=== PATIENT | male | born 1930 | race Caucasian/White ===

== ENCOUNTER 2017-12-04 10:39 | Outpatient (CLI) | payer MEDICARE, OTHER ==
[2017-12-04 13:13] LABS: ALANINE AMINOTRANSFERASE 33 U/L (12-78); ALBUMIN 3.1 G/DL (3.4-5.0); ALBUMIN/GLOBULIN RATIO 0.9 (1.1-1.5); ALKALINE PHOSPHATASE 64 IU/L (46-116); ANION GAP 10 (8-16); ASPARTATE AMINO TRANSFERASE 30 U/L (10-37); BILIRUBIN,DIRECT 0.2 MG/DL (0-0.3); BLOOD UREA NITROGEN 18 MG/DL (7-18); BUN/CREATININE RATIO 12.9 (5.4-32.0); CALCIUM 9.2 MG/DL (8.5-10.1); CHLORIDE 108 MMOL/L (99-107); GLUCOSE 124 MG/DL (70-104); SODIUM 144 MMOL/L (135-145); TOTAL CARBON DIOXIDE 26.3 MMOL/L (24-32); TOTAL PROTEIN 6.6 G/DL (6.4-8.2); eGFR 48 ML/MIN
== END 2017-12-04 23:59 | disposition home or self-care (01) ==
LOC: RT 10:39
PROVIDERS: ATTEND Family Medicine
DX: Z51.81 Encounter for therapeutic drug level monitoring (principal); I10 Essential (primary) hypertension; J44.9 Chronic obstructive pulmonary disease, unspecified; I25.10 Atherosclerotic heart disease of native coronary artery without angina pectoris; E78.5 Hyperlipidemia, unspecified; G45.9 Transient cerebral ischemic attack, unspecified; Z79.01 Long term (current) use of anticoagulants; Z79.899 Other long term (current) drug therapy
CPT/HCPCS: 36415; 80048; 80076; 84443; 94010; 94729

== ENCOUNTER 2019-02-19 10:46 | Inpatient (IN) | payer MEDICARE, OTHER ==
[~2019-02-19] VITALS: Ht 180.3 cm; Wt 123.1 kg
--- NOTE | 2019-02-19 11:08 | NUR ---
PT IS ALERT AND ORIENTED, PT C/O RT ANKLE PAIN, +SWELLING (NORMAL FOR PT), SKIN IS WARM TO TOUCH, +CMST TO RT FOOT
[2019-02-19 11:30] LABS: BASOPHILS % (AUTO) 0.2 % (0-1); EOSINOPHILS % (AUTO) 0 % (0-6); HEMATOCRIT 43.7 % (42.0-52.0); HEMOGLOBIN 14.4 g/dl (14.0-17.9); LYMPHOCYTES # (AUTO) 0.3 X10'3 (1.1-4.8); LYMPHOCYTES % (AUTO) 1.4 % (21-51); MEAN PLATELET VOLUME 8.9 FL (7.4-10.4); MONOCYTES # (AUTO) 0.8 X10'3 (0-0.9); NEUTROPHILS # (AUTO) 19.9 X10'3 (1.8-7.7); NEUTROPHILS % (AUTO) 94.4 % (42-75); PLATELET COUNT 149 X10'3 (140-440); RED BLOOD COUNT 4.65 X10'6 (4.70-6.10); RED CELL DISTRIBUTION WIDTH 14.4 % (11.5-14.5); WHITE BLOOD COUNT 21.1 X10'3 (4.5-11.0)
[2019-02-19 11:45] LABS: PARTIAL THROMBOPLASTIN TIME 51 SECONDS (22-32)
[2019-02-19 11:48] LABS: ALANINE AMINOTRANSFERASE 34 U/L (12-78); ALBUMIN 2.7 G/DL (3.4-5.0); ALBUMIN/GLOBULIN RATIO 0.8 (1.1-1.5); ALKALINE PHOSPHATASE 60 IU/L (46-116); ANION GAP 12 (8-16); ASPARTATE AMINO TRANSFERASE 34 U/L (10-37); BILIRUBIN,TOTAL 1.9 MG/DL (0.1-1.0); BLOOD UREA NITROGEN 21 MG/DL (7-18); BUN/CREATININE RATIO 10.8 (5.4-32.0); CHLORIDE 110 MMOL/L (99-107); CREATININE 1.94 MG/DL (0.60-1.10); GLUCOSE 96 MG/DL (70-104); POTASSIUM 3.5 MMOL/L (3.5-5.1); SODIUM 143 MMOL/L (135-145); TOTAL CARBON DIOXIDE 21.2 MMOL/L (24-32); TOTAL PROTEIN 5.9 G/DL (6.4-8.2); eGFR 33 ML/MIN
[2019-02-19 11:53] LABS: CLARITY,URINE CLEAR (Clear); COLOR,URINE STRAW (Yellow); GLUCOSE, URINE NEGATIVE (Neg); KETONES,URINE NEGATIVE (Neg); LEUKOCYTE ESTERASE ,URINE NEGATIVE (Neg); NITRITES, URINE NEGATIVE (Neg); OCCULT BLOOD,URINE MODERATE (Neg); PROTEIN,URINE NEGATIVE (Neg); UROBILINOGEN,URINE 0.2 E.U/dL (0.2-1.0)
[2019-02-19 11:56] LABS: UA COLLECTION TYPE CLN CATCH MIDSTREAM
[2019-02-19 11:59] LABS: SQUAMOUS EPITHELIAL CELL,UR FEW /LPF (FEW)
[2019-02-19 12:00] LABS: RENAL CELLS, URINE MODERATE /HPF; TRANSITIONAL EPI CELLS,URINE FEW /HPF; WBC,URINE 0-4 /HPF (0-4)
[2019-02-19 12:01] LABS: BACTERIA,URINE NONE SEEN /HPF (Neg); MUCUS STRANDS FEW /LPF (Neg)
[2019-02-19] MEDS ORDERED: levoFLOXACIN-Levaquin 750MG/D5 150 ML IV STA (12:09)
[2019-02-19 12:10] LABS: NUCLEATED RED BLOOD CELLS 1 /100WBC (0-0); TOTAL CELLS COUNTED 100
[2019-02-19] MEDS ORDERED: normal saline 1000ML IV soln IV ONE (12:10)
[2019-02-19 12:12] LABS: PLATELET ESTIMATE NORMAL
--- NOTE | 2019-02-19 12:25 | NUR ---
DR JONES AWARE PT HAS RECEIVED 1LITER OF IVF, GAVE VERBAL ORDER TO GIVE 500ML NS BOLUS NOW, COSTUME SEAMSTRESS AT BEDSIDE, FAMILY AT BEDSIDE
--- NOTE | 2019-02-19 12:30 | NUR ---
DR JONES AT BEDSIDE TO TALK WITH FAMILY, GAVE VERBAL ORDER TO GIVE ADDITIONAL 500ML NS BOLUS FOR A TOTAL OF 1 LITER, EF IS 65% PER TECH
[2019-02-19 12:40] LABS: D-DIMER 3.52 MG/L FEU (0-0.50)
[2019-02-19] MEDS ORDERED: acetaminophen 325mg tablet PO ONE (13:10)
[2019-02-19] MEDS: heparin 25,000 UNIT/250ml bag 250 ML IV SCH ×2 (13:10→18:09)
[2019-02-19] MEDS ORDERED: heparin 10,000 units/1 ML INJ IV ONE (13:10)
[2019-02-19] MEDS ORDERED: normal saline 1000ML IV soln IVB ONE (13:10)
[2019-02-19] MEDS ORDERED: AMIO200T40 PO (13:18)
[2019-02-19] MEDS ORDERED: FLUT1DIS4 INH (13:18)
--- NOTE | 2019-02-19 13:18 | NUR ---
DR JONES AWARE PT HAS RECEIVED 2 LITERS OF NS AND PT C/O RT ANKLE PAIN AND TEMP IS DOWN TO 100.4 (BLADDER), GAVE VERBAL ORDER FOR 1 LITER NS
[2019-02-19] MEDS ORDERED: ATOR20TA66 PO (13:19)
[2019-02-19] MEDS ORDERED: DABI150C PO (13:20)
[2019-02-19] MEDS ORDERED: MULT-32 PO (13:20)
[2019-02-19] MEDS ORDERED: CHOL10002 PO (13:21)
[2019-02-19] MEDS ORDERED: ALBU18HF2 INH (13:22)
--- NOTE | 2019-02-19 13:26 | NUR ---
DR JONES AWARE PT IS ON PRADAXA AND COAG RESULTS, WILL HOLD HEPARIN GTT FOR NOW
--- NOTE | 2019-02-19 13:45 | NUR ---
S/W ABOUT THE PT GETTING HEPARIN, SAID TO GO AHEAD AND HOLD HEPARIN DUE TO PT BEING ON PRADAXA
[2019-02-19 13:57] LABS: BASOPHILS % (AUTO) 0.2 % (0-1); EOSINOPHILS % (AUTO) 0 % (0-6); HEMATOCRIT 40.6 % (42.0-52.0); HEMOGLOBIN 13.3 g/dl (14.0-17.9); LYMPHOCYTES # (AUTO) 0.2 X10'3 (1.1-4.8); MEAN CORPUSCULAR HEMOGLOBIN 31.1 PG (27.0-31.0); MEAN CORPUSCULAR HGB CONC 32.7 g/dL (33.0-36.5); MEAN PLATELET VOLUME 8.8 FL (7.4-10.4); MONOCYTES # (AUTO) 1.3 X10'3 (0-0.9); MONOCYTES % (AUTO) 5.9 % (2-12); NEUTROPHILS # (AUTO) 19.9 X10'3 (1.8-7.7); NEUTROPHILS % (AUTO) 92.9 % (42-75); PLATELET COUNT 119 X10'3 (140-440); RED BLOOD COUNT 4.27 X10'6 (4.70-6.10); RED CELL DISTRIBUTION WIDTH 14.4 % (11.5-14.5); WHITE BLOOD COUNT 21.5 X10'3 (4.5-11.0)
[2019-02-19] MEDS: heparin 10,000 units/1 ML INJ IV PRN ×2 (13:58→18:11)
--- NOTE | 2019-02-19 14:12 | NUR ---
HOSPITALIST AT THE BEDSIDE, AWARE OF BLOOD PRESSURE AND PT HAS RECEIVED 3LITERS OF NS
[2019-02-19] MEDS ORDERED: ondansetron/PF 4mg/2ml inj IV PRN (14:15)
[2019-02-19] MEDS ORDERED: diphenhydrAMINE 25mg capsule PO PRN (14:15)
[2019-02-19] MEDS ORDERED: potassium Cl 20 mEq SR tablet PO PRN ×2 (14:15)
[2019-02-19] MEDS ORDERED: magnesium hydroxide 30ml (MOM) UD suspension PO PRN (14:15)
[2019-02-19] MEDS ORDERED: acetaminophen 650mg rectal suppository RC PRN (14:15)
[2019-02-19] MEDS ORDERED: magnesium 2GM in 50ml NS 50 ML IV PRN (14:15)
[2019-02-19] MEDS ORDERED: potassium CL 10mEq/100ml bag 100 ML IV PRN ×2 (14:15)
[2019-02-19] MEDS ORDERED: magnesium 4gm in 100ml NS 100 ML IV PRN (14:15)
[2019-02-19] MEDS ORDERED: magnesium Cl slow-release 64mg tablet PO PRN (14:15)
[2019-02-19] MEDS ORDERED: morphine 2 MG/ML inj. syringe IV PRN ×2 (14:15)
[2019-02-19] MEDS ORDERED: diphenhydrAMINE 50 mg/ml inj IV PRN (14:15)
[2019-02-19] MEDS ORDERED: ipratropium/albuterol 3ml nebule NEB PRN (14:15)
[2019-02-19] MEDS ORDERED: metoclopramide 5 mg/ml inj IV PRN (14:15)
[2019-02-19] MEDS ORDERED: bisacodyl 10mg suppository rectal RC PRN (14:15)
[2019-02-19] MEDS ORDERED: acetaminophen 325mg tablet PO PRN ×2 (14:15)
[2019-02-19] MEDS ORDERED: mag hydrox/Alum hydrox/simeth 30ml oral suspension PO PRN (14:15)
[2019-02-19] MEDS ORDERED: non-formulary drug (Albuterol Sulfate (Ventolin Hfa) 2 PUFFS) INH PRN (14:15)
[2019-02-19] MEDS ORDERED: albuterol 2.5 MG/3 ML nebule NEB PRN (14:20)
[2019-02-19] MEDS ORDERED: vancomycin/NS 1 GM ADD-VANTAGE 250 ML IV ONE ×2 (14:35→16:30)
[2019-02-19] MEDS: albuterol 2.5 MG/3 ML nebule NEB SCH ×2 (14:57→20:20)
[2019-02-19 15:00] VITALS: BP 98/56
--- NOTE | 2019-02-19 15:10 | NUR ---
called to give report to PCU nurse, they will call me back in 5 minutes
--- NOTE | 2019-02-19 15:30 | NUR ---
Received pt report from ED nurse, awaiting pt's arrival.
--- NOTE | 2019-02-19 15:30 | NUR ---
REPORT CALLED TO REFUGIO HOLLIS
[2019-02-19] MEDS: piperacillin/tazo 3.375gm/50ml 50 ML IV SCH ×2 (15:38→19:26)
[2019-02-19 15:41] LABS: HEMOGLOBIN A1C 5.8 % (4.5-6.2)
[2019-02-19 15:51] LABS: BILIRUBIN,DIRECT 0.4 MG/DL (0-0.3)
[2019-02-19] MEDS: normal saline 1000ml 1,000 ML IV SCH (16:00)
--- NOTE | 2019-02-19 16:00 | NUR ---
Patient in room PCU 3024. Vital signs obtained, tele monitor placed on pt, and call light given to pt. Skin check complete. NS running at 100 mL/hr and IV abx. Pt family at bedside, will continue to monitor.
--- NOTE | 2019-02-19 17:51 | NUR ---
PAGER ID: [phone] MESSAGE: [id number] Nestor Michaud, noticed heparin gtt ordered, but it was never started. Continue with Heparin gtt, please call Neelima #[phone] Addendum: 02/19/19 at 1814 by Neelima Ayala RN Dr. Sifuentes called back. Per Dr. Sifuentes, place pt on a Heparin cardiac gtt and follow protocol.
[2019-02-19 18:00] VITALS: BP 91/45
[2019-02-19] MEDS: K and/or MAG REPLACEMENT MC SCH (19:26)
[2019-02-19] MEDS: azithromycin/NS 500mg/250ml 250 ML IV SCH (19:32)
[2019-02-19] MEDS ORDERED: non-formulary drug (Fluticasone/Salmeterol (Advair 250-50 Diskus) 1 PUFFS) INH SCH (20:00)
[2019-02-19] MEDS: budesonide 0.5mg/2ml UD nebule IH SCH (20:20)
[2019-02-19] MEDS ORDERED: temazepam 15mg capsule PO PRN (21:00)
[2019-02-19] MEDS: atorvastatin 20mg tablet PO SCH (21:05)
[2019-02-19 22:00] VITALS: BP 95/55
[2019-02-20] VITALS (12 sets, daily range): BP systolic 91–114; BP diastolic 45–60
[2019-02-20] MEDS: piperacillin/tazo 3.375gm/50ml 50 ML IV SCH ×2 (00:53→07:34)
[2019-02-20] MEDS: normal saline 1000ml 1,000 ML IV SCH ×2 (00:56→07:20)
[2019-02-20] MEDS ORDERED: normal saline 1000ml 1,000 ML IV ONE (01:00)
[2019-02-20 01:19] LABS: BASOPHILS # (AUTO) 0.3 X10'3 (0-0.2); BASOPHILS % (AUTO) 1.1 % (0-1); EOSINOPHILS % (AUTO) 0 % (0-6); HEMATOCRIT 42.6 % (42.0-52.0); HEMOGLOBIN 13.8 g/dl (14.0-17.9); LYMPHOCYTES # (AUTO) 0.4 X10'3 (1.1-4.8); LYMPHOCYTES % (AUTO) 1.4 % (21-51); MEAN CORPUSCULAR HEMOGLOBIN 30.9 PG (27.0-31.0); MEAN CORPUSCULAR HGB CONC 32.4 g/dL (33.0-36.5); MEAN CORPUSCULAR VOLUME 95.2 FL (78-98); MEAN PLATELET VOLUME 9.4 FL (7.4-10.4); MONOCYTES # (AUTO) 1.4 X10'3 (0-0.9); NEUTROPHILS # (AUTO) 25.6 X10'3 (1.8-7.7); NEUTROPHILS % (AUTO) 92.5 % (42-75); PLATELET COUNT 108 X10'3 (140-440); RED BLOOD COUNT 4.47 X10'6 (4.70-6.10)
[2019-02-20 01:21] LABS: WHITE BLOOD COUNT 27.7 X10'3 (4.5-11.0)
[2019-02-20 02:12] LABS: PLATELET ESTIMATE DECREASED; TOTAL CELLS COUNTED 100
[2019-02-20 03:00] LABS: ALANINE AMINOTRANSFERASE 36 U/L (12-78); ALBUMIN 2.3 G/DL (3.4-5.0); ALBUMIN/GLOBULIN RATIO 0.7 (1.1-1.5); ALKALINE PHOSPHATASE 36 IU/L (46-116); ANION GAP 14 (8-16); ASPARTATE AMINO TRANSFERASE 54 U/L (10-37); BLOOD UREA NITROGEN 28 MG/DL (7-18); CALCIUM 7.4 MG/DL (8.5-10.1); CHLORIDE 110 MMOL/L (99-107); CHOL/HDL RATIO 1.1 (0.00-4.99); CHOLESTEROL 68 MG/DL (0-200); CREATININE 2.33 MG/DL (0.60-1.10); GLUCOSE 68 MG/DL (70-104); HDL CHOLESTEROL 61 MG/DL (35-60); LDL CHOLESTEROL 10 MG/DL (50-100); MAGNESIUM 1.2 MG/DL (1.5-2.4); PHOSPHORUS 3.4 MG/DL (2.3-4.5); POTASSIUM 4.3 MMOL/L (3.5-5.1); SODIUM 143 MMOL/L (135-145); TOTAL CARBON DIOXIDE 19.5 MMOL/L (24-32); TOTAL PROTEIN 5.7 G/DL (6.4-8.2); TRIGLYCERIDES 30 MG/DL (20-135); TROPONIN I 0.39 NG/ML (0.0-0.05); eGFR 27 ML/MIN
[2019-02-20] MEDS: albuterol 2.5 MG/3 ML nebule NEB SCH ×4 (03:04→20:08)
[2019-02-20 04:56] LABS: ABG BASE EXCESS -7.9 mmol/L (-2.0-3.0); ABG HCO3 16.8 mmol/L (22.0-26.0); ABG OXYGEN SATURATION 94.3 % (95-98); ABG PCO2 (T) 36.1 mmHg (35.0-48.0); ABG PH (T) 7.297 (7.350-7.450); ABG PO2 (T) 85.8 mmHg (83-108); ALLEN'S TEST Positive; FCOHb 0.6 % (0.5-1.5); FLOW 2 L/min; FMetHb 0.4 % (0.3-1.12); FO2Hb 93.4 % (94-100); PATIENT TEMPERATURE 39.4; TOTAL HEMOGLOBIN 14.7 G/dl (14.0-18.0)
[2019-02-20] MEDS ORDERED: MESSAGE TO PHARMACY PO ONE (06:00)
[2019-02-20] MEDS ORDERED: insulin Lispro (HumaLOG) vial - multi-dose SQ SCH (06:00)
[2019-02-20] MEDS ORDERED: dextrose 50%-water 50ml dispensing syringe IV PRN ×2 (06:00)
[2019-02-20] MEDS ORDERED: glucagon, human recombinant 1mg kit SUBCUT PRN (06:00)
[2019-02-20] MEDS ORDERED: dextrose ORAL solution 15 GM/59 ML bottle PO PRN ×2 (06:00)
[2019-02-20] MEDS ORDERED: sodium phosphate inj. 30 MMOL in dextrose 5%-water 250 ML IV PRN (06:05)
[2019-02-20] MEDS ORDERED: magnesium 2GM in 50ml NS 50 ML IV PRN (06:05)
[2019-02-20] MEDS ORDERED: Neutra Phos packet PO PRN (06:05)
[2019-02-20] MEDS ORDERED: potassium CL 10mEq/100ml bag 100 ML IV PRN ×2 (06:05)
[2019-02-20] MEDS ORDERED: magnesium 4gm in 100ml NS 100 ML IV PRN (06:05)
[2019-02-20] MEDS ORDERED: potassium Cl 20 mEq SR tablet PO PRN ×2 (06:05)
[2019-02-20] MEDS ORDERED: magnesium Cl slow-release 64mg tablet PO PRN (06:05)
[2019-02-20] MEDS ORDERED: sodium phosphate inj. 15 MMOL in dextrose 5%-water 150 ML IV PRN (06:05)
--- NOTE | 2019-02-20 06:51 | NUR ---
Pt had a very eventful night in PCU. Lactate kept increasing overnight from 4.4 to 5.6 to 6.1 where it has remained since approximately 430am. Redraw is timed for 830am. Pt rec'd 3L IVF in ED, and received an additional 1L bolus after the 5.6 lactate. No additional boluses ordered thereafter due to concern for fluid overload r/t cardiac history. Initial PTT results at midnight for the heparin gtt where too high to register. A STAT redraw was done and confirmed supracoagulability. Heparin gtt was turned off at the time of the confirmed result, around 2am per Dr. Aguilar who ordered a 2hr re-draw. That result was 145, heparin gtt remains off at this time and a 4hr PTT redraw was ordered, for 830am. Pt is also anticoagulated from his home med, Pradaxa. Troponins were elevated in ED and protocol was continued here until they peaked at 0.43, then dropped off to 0.39. Blood Cx came back positive overnight: gram positive cocci in chains from the aerobic bottle at 12.1 hrs growth from the right arm. Pt is on broad spectrum abx, receiving Levaquin in ED, 2 doses of Vanc on the PCU as well as Zosyn coverage. Even so, WBC foster from 21.5 yesterday to 27.7 overnight. Pts RLE is painful, red, warm and edematous. He rec'd Morphine x2 overnight for pain control. No vascular study has been completed on it at this time. Pt began the evening on 2L NC, but has required more oxygen as night progressed. He was up to 4L NC w/sats at 93 around 4am. However his WOB seemed to increase and his resp. rate got up to 26-28. Around this time, pt also seemed to be harder to arouse, much more somulent, had difficulty following directions and was not able to take sips of water to swallow PO Tylenol. Pt was agreeable to trying a better mask to help his breathing, so Dr. Aguilar ordered an ABG, and Bipap placement (with a follow up ABG) at this time. Current settings are 15/5 @50% O2. Pt is febrile, temperature rising overnight, finally to 101.5 just before 4am. Attempted to give PO Tylenol but pt was too somulent to swallow safely. Will keep pt NPO at this time until more alert due to aspiration risk. Ordered Q6 blood glucose checks to monitor for hypoglycemia since poor/no oral intake. UOP was minimal overnight despite IVF bolus. 350cc dark miki/sediment UOP measured from [place] for the shift. Electrolyte replacement protocol entered this morning, Mg on AM labs was 1.2, will be replaced this morning. All critical labs/changes in pt condition were reported to the on-call physician overnight. Full report given to day shift RN, all questions answered.
[2019-02-20] MEDS: amiodarone 200mg tablet PO SCH (07:19)
[2019-02-20] MEDS: K and/or MAG REPLACEMENT MC SCH (07:19)
[2019-02-20] MEDS: multivitamins, therapeutics tablet PO SCH (07:19)
[2019-02-20] MEDS: vitamin D (cholecalciferol) 1,000 unit tablet PO SCH (07:19)
[2019-02-20 07:21] LABS: ABG BASE EXCESS -7.4 mmol/L (-2.0-3.0); ABG HCO3 16.2 mmol/L (22.0-26.0); ABG PCO2 (T) 30.6 mmHg (35.0-48.0); ABG PH (T) 7.349 (7.350-7.450); ABG PO2 (T) 121.4 mmHg (83-108); ALLEN'S TEST Positive; FCOHb 0.4 % (0.5-1.5); FMetHb 0.3 % (0.3-1.12); FO2Hb 97.3 % (94-100); MINUTE VOLUME 27 L/min; PATIENT TEMPERATURE 38.8; RESPIRATORY RATE 16 b/min; RESPIRATORY RATE (OBSERVED) 28 b/min; TOTAL HEMOGLOBIN 14.5 G/dl (14.0-18.0)
[2019-02-20] MEDS: azithromycin/NS 500mg/250ml 250 ML IV SCH (07:34)
[2019-02-20] MEDS ORDERED: non-formulary drug (Cholecalciferol (Vitamin D3) (Vitamin D3) 1 TAB) PO SCH (08:00)
[2019-02-20] MEDS ORDERED: LUT PO SCH (08:00)
[2019-02-20] MEDS ORDERED: K and/or MAG REPLACEMENT MC SCH (08:00)
[2019-02-20] MEDS ORDERED: MULTIVITAMINS W MINERALS PO SCH (08:00)
[2019-02-20] MEDS: budesonide 0.5mg/2ml UD nebule IH SCH ×2 (08:39→20:08)
[2019-02-20] MEDS ORDERED: DOPamine 400mg/D5W 250ml 250 ML IV SCH (12:10)
[2019-02-20] MEDS ORDERED: CLINDAMYCIN/D5W 900mg/50ml 50 ML IV SCH (12:45)
[2019-02-20] MEDS ORDERED: CefTRIAXone 2gm/D5W 50ml 50 ML IV SCH (12:45)
--- NOTE | 2019-02-20 13:02 | NUR ---
PAGER ID: [phone] MESSAGE: patient in [id number] needs a central line for dopamine infusion, not available today unless he goes to the ICU
--- NOTE | 2019-02-20 13:47 | NUR ---
PAGER ID: [phone] MESSAGE: patients family would like him to go to ICU, they claim he was never opposed to it, but he was told he couldn't without intubation, please give me a call
--- NOTE | 2019-02-20 15:06 | NUR ---
patient transferred to cicu rom 2007, report given to bry HOLLIS
--- NOTE | 2019-02-20 15:30 | NUR ---
Pt arrived to floor from PCU with BiPap; patient placed on bedside monitor with stable vital signs and MAP >60. Dr. Ledesma at bedside to place central line. 2 RN skin check performed with Tosha RN with no significant findings other than reddened cellulitis to right lower extremity; pt pending a vascular scan to r/o DVT.
[2019-02-20] MEDS: penicillin G potassium inj 2,000,000 UNIT in normal saline 100ml IV soln 100 ML IV SCH ×3 (16:00→20:38)
[2019-02-20] MEDS ORDERED: clindamycin-Cleocin 900mg/D5W 50 ML IV SCH (16:00)
--- NOTE | 2019-02-20 17:30 | NUR ---
Critical ptt >153; Heparin stopped per protocol. MD notified with orders to D/C the Heparin gtt.
[2019-02-20] MEDS ORDERED: NORepinephrine 8mg/ 250ml NS 250 ML IV SCH (18:10)
--- NOTE | 2019-02-20 18:30 | NUR ---
Patient in room CICU 2008. I have received report from Marco Antonio HOLLIS and had the opportunity to ask questions and assume patient care.
--- NOTE | 2019-02-20 18:50 | NUR ---
Problems reprioritized. Patient report given, questions answered & plan of care reviewed with Kartik HOLLIS.
[2019-02-20] MEDS: lactobacillus rhamnosus 10,000 MMU CELLS/CAPSULE PO SCH (20:38)
[2019-02-20] MEDS: atorvastatin 20mg tablet PO SCH (20:38)
[2019-02-20] MEDS: insulin glargine (Lantus) pen - multi-dose SQ SCH (21:00)
[2019-02-21] VITALS (21 sets, daily range): BP systolic 92–118; BP diastolic 40–67
[2019-02-21] MEDS: normal saline 1000ml 1,000 ML IV SCH ×3 (00:01→13:49)
[2019-02-21] MEDS: penicillin G potassium inj 2,000,000 UNIT in normal saline 100ml IV soln 100 ML IV SCH ×3 (00:02→08:47)
[2019-02-21] MEDS: albuterol 2.5 MG/3 ML nebule NEB SCH ×4 (02:28→20:19)
[2019-02-21 03:14] LABS: BASOPHILS # (AUTO) 0.1 X10'3 (0-0.2); BASOPHILS % (AUTO) 0.3 % (0-1); EOSINOPHILS % (AUTO) 0 % (0-6); HEMATOCRIT 41.2 % (42.0-52.0); HEMOGLOBIN 13.1 g/dl (14.0-17.9); LYMPHOCYTES # (AUTO) 0.8 X10'3 (1.1-4.8); LYMPHOCYTES % (AUTO) 2.7 % (21-51); MEAN CORPUSCULAR HEMOGLOBIN 30.3 PG (27.0-31.0); MEAN CORPUSCULAR HGB CONC 31.8 g/dL (33.0-36.5); MEAN CORPUSCULAR VOLUME 95.4 FL (78-98); MEAN PLATELET VOLUME 8.9 FL (7.4-10.4); MONOCYTES # (AUTO) 1.9 X10'3 (0-0.9); MONOCYTES % (AUTO) 6.3 % (2-12); NEUTROPHILS # (AUTO) 27.9 X10'3 (1.8-7.7); NEUTROPHILS % (AUTO) 90.7 % (42-75); PLATELET COUNT 102 X10'3 (140-440); RED BLOOD COUNT 4.32 X10'6 (4.70-6.10); RED CELL DISTRIBUTION WIDTH 15.3 % (11.5-14.5)
[2019-02-21 03:22] LABS: ALANINE AMINOTRANSFERASE 56 U/L (12-78); ALBUMIN/GLOBULIN RATIO 0.6 (1.1-1.5); ALKALINE PHOSPHATASE 44 IU/L (46-116); ANION GAP 8 (8-16); ASPARTATE AMINO TRANSFERASE 176 U/L (10-37); BILIRUBIN,TOTAL 0.9 MG/DL (0.1-1.0); BLOOD UREA NITROGEN 40 MG/DL (7-18); BUN/CREATININE RATIO 21.3 (5.4-32.0); CALCIUM 7.6 MG/DL (8.5-10.1); CHLORIDE 111 MMOL/L (99-107); CREATININE 1.88 MG/DL (0.60-1.10); GLUCOSE 92 MG/DL (70-104); PHOSPHORUS 3.6 MG/DL (2.3-4.5); POTASSIUM 4.2 MMOL/L (3.5-5.1); SODIUM 142 MMOL/L (135-145); TOTAL CARBON DIOXIDE 22.6 MMOL/L (24-32); TOTAL PROTEIN 5.5 G/DL (6.4-8.2); eGFR 34 ML/MIN
[2019-02-21 03:25] LABS: WHITE BLOOD COUNT 30.7 X10'3 (4.5-11.0)
--- NOTE | 2019-02-21 06:20 | NUR ---
Patient in room CICU 2007. I have received report from Kartik HOLLIS and had the opportunity to ask questions and assume patient care.
[2019-02-21] MEDS: budesonide 0.5mg/2ml UD nebule IH SCH ×2 (07:35→20:19)
[2019-02-21] MEDS: K and/or MAG REPLACEMENT MC SCH (08:00)
[2019-02-21 08:37] LABS: TOTAL CELLS COUNTED 100
[2019-02-21 08:38] LABS: ANISOCYTOSIS 1+; PLATELET ESTIMATE DECREASED
[2019-02-21] MEDS: lactobacillus rhamnosus 10,000 MMU CELLS/CAPSULE PO SCH ×2 (08:57→20:30)
[2019-02-21] MEDS: vitamin D (cholecalciferol) 1,000 unit tablet PO SCH (08:57)
[2019-02-21] MEDS: amiodarone 200mg tablet PO SCH (08:57)
[2019-02-21] MEDS: multivitamins, therapeutics tablet PO SCH (08:57)
[2019-02-21] MEDS ORDERED: clindamycin-Cleocin 900mg/D5W 50 ML IV SCH (09:10)
[2019-02-21] MEDS: HYDROcodone/acetaminophen 5mg/325mg tablet PO PRN (09:15)
[2019-02-21] MEDS: clindamycin-Cleocin 900mg/D5W 50 ML IV SCH ×2 (10:39→16:06)
[2019-02-21] MEDS: CefTRIAXone 2gm/D5W 50ml 50 ML IV SCH (10:43)
--- NOTE | 2019-02-21 18:25 | NUR ---
Problems reprioritized. Patient report given, questions answered & plan of care reviewed with Kartik HOLLIS.
[2019-02-21] MEDS: insulin glargine (Lantus) pen - multi-dose SQ SCH (20:27)
[2019-02-21] MEDS: atorvastatin 20mg tablet PO SCH (20:30)
[2019-02-22] VITALS (20 sets, daily range): BP systolic 93–129; BP diastolic 48–75
[2019-02-22] MEDS: normal saline 1000ml 1,000 ML IV SCH (00:21)
[2019-02-22] MEDS: clindamycin-Cleocin 900mg/D5W 50 ML IV SCH ×3 (00:21→17:43)
[2019-02-22 02:42] LABS: BASOPHILS # (AUTO) 0.1 X10'3 (0-0.2); BASOPHILS % (AUTO) 0.2 % (0-1); EOSINOPHILS % (AUTO) 0 % (0-6); HEMATOCRIT 39.4 % (42.0-52.0); HEMOGLOBIN 12.9 g/dl (14.0-17.9); LYMPHOCYTES # (AUTO) 0.7 X10'3 (1.1-4.8); LYMPHOCYTES % (AUTO) 2.4 % (21-51); MEAN CORPUSCULAR HEMOGLOBIN 30.9 PG (27.0-31.0); MEAN CORPUSCULAR HGB CONC 32.9 g/dL (33.0-36.5); MEAN CORPUSCULAR VOLUME 93.8 FL (78-98); MEAN PLATELET VOLUME 9.1 FL (7.4-10.4); MONOCYTES # (AUTO) 1.5 X10'3 (0-0.9); MONOCYTES % (AUTO) 5.5 % (2-12); NEUTROPHILS # (AUTO) 25.6 X10'3 (1.8-7.7); NEUTROPHILS % (AUTO) 91.9 % (42-75); PLATELET COUNT 101 X10'3 (140-440); RED CELL DISTRIBUTION WIDTH 15.1 % (11.5-14.5)
[2019-02-22 02:49] LABS: ALANINE AMINOTRANSFERASE 57 U/L (12-78); ALBUMIN 1.9 G/DL (3.4-5.0); ALBUMIN/GLOBULIN RATIO 0.5 (1.1-1.5); ALKALINE PHOSPHATASE 61 IU/L (46-116); ANION GAP 7 (8-16); ASPARTATE AMINO TRANSFERASE 117 U/L (10-37); BILIRUBIN,TOTAL 0.8 MG/DL (0.1-1.0); BLOOD UREA NITROGEN 41 MG/DL (7-18); BUN/CREATININE RATIO 30.8 (5.4-32.0); CALCIUM 7.8 MG/DL (8.5-10.1); CHLORIDE 110 MMOL/L (99-107); CREATININE 1.33 MG/DL (0.60-1.10); GLUCOSE 103 MG/DL (70-104); MAGNESIUM 2.1 MG/DL (1.5-2.4); PHOSPHORUS 2.2 MG/DL (2.3-4.5); SODIUM 141 MMOL/L (135-145); TOTAL CARBON DIOXIDE 24.3 MMOL/L (24-32); TOTAL PROTEIN 5.7 G/DL (6.4-8.2); eGFR 51 ML/MIN
[2019-02-22 02:59] LABS: WHITE BLOOD COUNT 27.8 X10'3 (4.5-11.0)
[2019-02-22] MEDS: albuterol 2.5 MG/3 ML nebule NEB SCH ×4 (03:20→21:11)
--- NOTE | 2019-02-22 06:30 | NUR ---
Problems reprioritized. Patient report given, questions answered & plan of care reviewed with Kristi HOLLIS.
[2019-02-22 07:48] LABS: ANISOCYTOSIS 1+; BURR CELLS 1+; PLATELET ESTIMATE DECREASED; TOTAL CELLS COUNTED 100; TOXIC GRANULATION 1+
[2019-02-22] MEDS: K and/or MAG REPLACEMENT MC SCH (08:00)
[2019-02-22] MEDS: multivitamins, therapeutics tablet PO SCH (08:27)
[2019-02-22] MEDS: vitamin D (cholecalciferol) 1,000 unit tablet PO SCH (08:27)
[2019-02-22] MEDS: lactobacillus rhamnosus 10,000 MMU CELLS/CAPSULE PO SCH ×2 (08:27→21:02)
[2019-02-22] MEDS: amiodarone 200mg tablet PO SCH (08:28)
[2019-02-22] MEDS: budesonide 0.5mg/2ml UD nebule IH SCH ×2 (09:14→21:11)
[2019-02-22] MEDS: CefTRIAXone 2gm/D5W 50ml 50 ML IV SCH (10:32)
[2019-02-22] MEDS ORDERED: furosemide 40mg/4ml inj IV ONE (12:10)
--- NOTE | 2019-02-22 18:30 | NUR ---
Patient in room CICU 2008. I have received report from Kristi HOLLIS and had the opportunity to ask questions and assume patient care.
[2019-02-22] MEDS: insulin glargine (Lantus) pen - multi-dose SQ SCH (21:00)
[2019-02-22] MEDS: atorvastatin 20mg tablet PO SCH (21:02)
[2019-02-22] MEDS: furosemide 40mg/4ml inj IV SCH (21:02)
[2019-02-23] VITALS (19 sets, daily range): BP systolic 91–116; BP diastolic 44–58
[2019-02-23] MEDS: clindamycin-Cleocin 900mg/D5W 50 ML IV SCH ×3 (00:44→16:33)
[2019-02-23] MEDS: HYDROcodone/acetaminophen 10/325mg tab PO PRN (00:45)
[2019-02-23] MEDS: albuterol 2.5 MG/3 ML nebule NEB SCH ×4 (03:12→20:57)
[2019-02-23 03:57] LABS: BASOPHILS % (AUTO) 0.2 % (0-1); EOSINOPHILS % (AUTO) 0.1 % (0-6); HEMATOCRIT 40.6 % (42.0-52.0); HEMOGLOBIN 13.2 g/dl (14.0-17.9); LYMPHOCYTES # (AUTO) 0.9 X10'3 (1.1-4.8); LYMPHOCYTES % (AUTO) 4.7 % (21-51); MEAN CORPUSCULAR HEMOGLOBIN 30.8 PG (27.0-31.0); MEAN CORPUSCULAR HGB CONC 32.6 g/dL (33.0-36.5); MEAN CORPUSCULAR VOLUME 94.5 FL (78-98); MEAN PLATELET VOLUME 9.3 FL (7.4-10.4); MONOCYTES % (AUTO) 10.9 % (2-12); NEUTROPHILS # (AUTO) 15.7 X10'3 (1.8-7.7); NEUTROPHILS % (AUTO) 84.1 % (42-75); PLATELET COUNT 100 X10'3 (140-440); RED BLOOD COUNT 4.29 X10'6 (4.70-6.10); RED CELL DISTRIBUTION WIDTH 14.8 % (11.5-14.5); WHITE BLOOD COUNT 18.7 X10'3 (4.5-11.0)
[2019-02-23 03:58] LABS: ALANINE AMINOTRANSFERASE 63 U/L (12-78); ALBUMIN 1.7 G/DL (3.4-5.0); ALBUMIN/GLOBULIN RATIO 0.5 (1.1-1.5); ALKALINE PHOSPHATASE 95 IU/L (46-116); ANION GAP 5 (8-16); ASPARTATE AMINO TRANSFERASE 93 U/L (10-37); BILIRUBIN,TOTAL 0.7 MG/DL (0.1-1.0); BLOOD UREA NITROGEN 36 MG/DL (7-18); BUN/CREATININE RATIO 28.3 (5.4-32.0); CALCIUM 8.3 MG/DL (8.5-10.1); CHLORIDE 108 MMOL/L (99-107); CREATININE 1.27 MG/DL (0.60-1.10); GLUCOSE 96 MG/DL (70-104); MAGNESIUM 1.9 MG/DL (1.5-2.4); PHOSPHORUS 2.9 MG/DL (2.3-4.5); POTASSIUM 3.5 MMOL/L (3.5-5.1); SODIUM 141 MMOL/L (135-145); TOTAL CARBON DIOXIDE 28.3 MMOL/L (24-32); TOTAL PROTEIN 5.3 G/DL (6.4-8.2); eGFR 53 ML/MIN
[2019-02-23] MEDS: furosemide 40mg/4ml inj IV SCH ×2 (07:53→20:37)
[2019-02-23] MEDS: K and/or MAG REPLACEMENT MC SCH (08:00)
[2019-02-23] MEDS: methylnaltrexone br 12mg/0.6ml inj***SubQ only SQ SCH (08:24)
[2019-02-23] MEDS: multivitamins, therapeutics tablet PO SCH (08:24)
[2019-02-23] MEDS: vitamin D (cholecalciferol) 1,000 unit tablet PO SCH (08:24)
[2019-02-23] MEDS: amiodarone 200mg tablet PO SCH (08:24)
[2019-02-23] MEDS: lactobacillus rhamnosus 10,000 MMU CELLS/CAPSULE PO SCH ×2 (08:24→20:36)
[2019-02-23] MEDS: CefTRIAXone 2gm/D5W 50ml 50 ML IV SCH (08:24)
[2019-02-23] MEDS: budesonide 0.5mg/2ml UD nebule IH SCH ×2 (09:24→20:57)
[2019-02-23] MEDS ORDERED: VANCOMYCIN LEVEL IV ONE (15:30)
--- NOTE | 2019-02-23 17:28 | NUR ---
[facility]. Transferred to bed using slide board. Vital signs obtained. Call light provided. Dtr. at bedside. VSS. RLE noted to be red with weeping blisters. Elevated on pillow with dri krystyna underneath.
--- NOTE | 2019-02-23 17:38 | NUR ---
Patient transferred to Telemetry floor bed 3024t, with belongings. Daughter at bedside, has his glasses with her. Report given to BUNNY Barnett.
[2019-02-23] MEDS: atorvastatin 20mg tablet PO SCH (20:36)
[2019-02-23] MEDS: insulin glargine (Lantus) pen - multi-dose SQ SCH (21:00)
[2019-02-24] MEDS: clindamycin-Cleocin 900mg/D5W 50 ML IV SCH ×3 (00:46→16:37)
[2019-02-24] MEDS: albuterol 2.5 MG/3 ML nebule NEB SCH ×4 (02:31→21:00)
[2019-02-24 03:00] VITALS: BP 115/50
[2019-02-24 05:14] LABS: BASOPHILS % (AUTO) 0.2 % (0-1); EOSINOPHILS # (AUTO) 0.1 X10'3 (0-0.9); EOSINOPHILS % (AUTO) 0.6 % (0-6); HEMATOCRIT 39.9 % (42.0-52.0); HEMOGLOBIN 13.4 g/dl (14.0-17.9); LYMPHOCYTES # (AUTO) 0.8 X10'3 (1.1-4.8); LYMPHOCYTES % (AUTO) 5.6 % (21-51); MEAN CORPUSCULAR HEMOGLOBIN 31.2 PG (27.0-31.0); MEAN CORPUSCULAR HGB CONC 33.7 g/dL (33.0-36.5); MEAN CORPUSCULAR VOLUME 92.5 FL (78-98); MEAN PLATELET VOLUME 8.8 FL (7.4-10.4); MONOCYTES # (AUTO) 2.2 X10'3 (0-0.9); MONOCYTES % (AUTO) 15.7 % (2-12); NEUTROPHILS # (AUTO) 11.2 X10'3 (1.8-7.7); NEUTROPHILS % (AUTO) 77.9 % (42-75); PLATELET COUNT 112 X10'3 (140-440); RED BLOOD COUNT 4.31 X10'6 (4.70-6.10); RED CELL DISTRIBUTION WIDTH 14.5 % (11.5-14.5); WHITE BLOOD COUNT 14.3 X10'3 (4.5-11.0)
[2019-02-24 05:50] LABS: ALANINE AMINOTRANSFERASE 77 U/L (12-78); ALBUMIN 1.7 G/DL (3.4-5.0); ALBUMIN/GLOBULIN RATIO 0.4 (1.1-1.5); ALKALINE PHOSPHATASE 140 IU/L (46-116); ANION GAP 8 (8-16); ASPARTATE AMINO TRANSFERASE 93 U/L (10-37); BILIRUBIN,TOTAL 0.9 MG/DL (0.1-1.0); BLOOD UREA NITROGEN 35 MG/DL (7-18); BUN/CREATININE RATIO 29.2 (5.4-32.0); CALCIUM 8.5 MG/DL (8.5-10.1); CHLORIDE 106 MMOL/L (99-107); GLUCOSE 94 MG/DL (70-104); MAGNESIUM 1.9 MG/DL (1.5-2.4); PHOSPHORUS 3.5 MG/DL (2.3-4.5); POTASSIUM 3.4 MMOL/L (3.5-5.1); SODIUM 142 MMOL/L (135-145); TOTAL CARBON DIOXIDE 27.9 MMOL/L (24-32); TOTAL PROTEIN 5.6 G/DL (6.4-8.2); eGFR 57 ML/MIN
[2019-02-24 06:00] VITALS: BP 112/53
--- NOTE | 2019-02-24 06:30 | NUR ---
Patient in room PCU 3028. I have received report from BUNNY Crisostomo and had the opportunity to ask questions and assume patient care. Pt is sleeping. Will continue to monitor.
[2019-02-24 06:33] LABS: LARGE PLATELETS FEW; PLATELET ESTIMATE DECREASED; TOTAL CELLS COUNTED 100
[2019-02-24] MEDS: budesonide 0.5mg/2ml UD nebule IH SCH ×2 (08:02→21:00)
[2019-02-24] MEDS: furosemide 40mg/4ml inj IV SCH ×2 (09:09→19:29)
[2019-02-24] MEDS: CefTRIAXone 2gm/D5W 50ml 50 ML IV SCH (09:09)
[2019-02-24] MEDS: amiodarone 200mg tablet PO SCH (09:09)
[2019-02-24] MEDS: lactobacillus rhamnosus 10,000 MMU CELLS/CAPSULE PO SCH ×2 (09:09→19:30)
[2019-02-24] MEDS: multivitamins, therapeutics tablet PO SCH (09:09)
[2019-02-24] MEDS: vitamin D (cholecalciferol) 1,000 unit tablet PO SCH (09:10)
[2019-02-24 11:00] VITALS: BP 123/64
[2019-02-24] MEDS ORDERED: potassium CL 10mEq/100ml bag 100 ML IV PRN (11:30)
[2019-02-24] MEDS ORDERED: potassium Cl 20 mEq SR tablet PO PRN (11:30)
[2019-02-24] MEDS: potassium Cl 20 mEq SR tablet PO PRN ×3 (12:03→22:22)
[2019-02-24] MEDS: K and/or MAG REPLACEMENT MC SCH (12:04)
--- NOTE | 2019-02-24 13:18 | NUR ---
Initial: Pt admit w/ severe sepsis and lactic acidosis improving per MD note. DX PNA and strep sepsis likely r/t RLE cellulitis per MD note. Pt/family seen by RD written/verbal high protein ed w/ RD contact information provided. Pt reports decent appetite but daughter reports low appetite recently and some trouble swallowing but r/t amount of mucous from DX and no mechanical swallowing issues. Pt agrees to gravy w/ meats, cottage cheese w/ fruit at dinners, and chocolate ensure pudding w/ lunches; dietary notified. PO 25% avg meals this admit LBM 02/20 pt reports no feelings of constipation. 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 Will continue to monitor. Rec: 1. continue heart healthy diet 2. chocolate ensure pudding w/ lunches 3. honor pt food preferences; see above 4. wt per rx Addendum: 02/24/19 at [address] Amended: Links added.
[2019-02-24 16:00] VITALS: BP 136/69
--- NOTE | 2019-02-24 16:37 | NUR ---
Pt had FC taken out 02/23/19. He is currently retaining 471mL of urine. Per Dr Huerta, straight cath to relieve pt now; if it keeps happening after 3 times, replace FC.
--- NOTE | 2019-02-24 18:27 | NUR ---
Patient in room PCU 3028. I have received report from BUNNY Long and had the opportunity to ask questions and assume patient care.
--- NOTE | 2019-02-24 18:50 | NUR ---
Problems reprioritized. Patient report given, questions answered & plan of care reviewed with BUNNY Bullock.
--- NOTE | 2019-02-24 19:00 | NUR ---
Spoke with Dr. Jeffers via telephone he advised to order Fuentes protocol for this patient. Will order Fuentes protocol per MD order/ Dr. Jeffers also advised so order a wound care consult to assess the patients skin on his right lower extremity.
[2019-02-24] MEDS: atorvastatin 20mg tablet PO SCH (19:51)
[2019-02-24] MEDS: dabigatran 150mg capsule PO SCH (21:35)
[2019-02-24 23:00] VITALS: BP 113/56
[2019-02-25] VITALS (8 sets, daily range): BP systolic 107–144; BP diastolic 44–64
[2019-02-25] MEDS: clindamycin-Cleocin 900mg/D5W 50 ML IV SCH ×4 (00:44→23:21)
--- NOTE | 2019-02-25 01:00 | NUR ---
Patient woke up confused and was not sure where he was. He believed that there was broken glass all over the floor. He wa confused for about 30 min while speaking with him. Will continue to monitor this patient.
[2019-02-25] MEDS: albuterol 2.5 MG/3 ML nebule NEB SCH ×4 (02:40→20:21)
--- NOTE | 2019-02-25 06:12 | NUR ---
Problems reprioritized. Patient report given, questions answered & plan of care reviewed with BUNNY Long.
--- NOTE | 2019-02-25 06:40 | NUR ---
Patient in room PCU 3028. I have received report from BUNNY Bullock and had the opportunity to ask questions and assume patient care. Pt is awake, and confused. Bed alarm is on. Will continue to monitor.
[2019-02-25] MEDS: K and/or MAG REPLACEMENT MC SCH (08:00)
[2019-02-25] MEDS: CefTRIAXone 2gm/D5W 50ml 50 ML IV SCH (08:21)
[2019-02-25] MEDS: methylnaltrexone br 12mg/0.6ml inj***SubQ only SQ SCH (08:22)
[2019-02-25] MEDS: multivitamins, therapeutics tablet PO SCH (08:22)
[2019-02-25] MEDS: lactobacillus rhamnosus 10,000 MMU CELLS/CAPSULE PO SCH ×2 (08:22→20:24)
[2019-02-25] MEDS: amiodarone 200mg tablet PO SCH (08:22)
[2019-02-25] MEDS: HYDROcodone/acetaminophen 5mg/325mg tablet PO PRN ×2 (08:22→14:48)
[2019-02-25] MEDS: furosemide 40mg/4ml inj IV SCH ×2 (08:22→20:26)
[2019-02-25] MEDS: vitamin D (cholecalciferol) 1,000 unit tablet PO SCH (08:22)
[2019-02-25] MEDS: dabigatran 150mg capsule PO SCH ×2 (08:25→21:47)
[2019-02-25] MEDS: budesonide 0.5mg/2ml UD nebule IH SCH ×2 (08:33→20:21)
[2019-02-25 09:45] LABS: BASOPHILS % (AUTO) 0.2 % (0-1); EOSINOPHILS # (AUTO) 0.1 X10'3 (0-0.9); EOSINOPHILS % (AUTO) 0.6 % (0-6); HEMATOCRIT 39.7 % (42.0-52.0); HEMOGLOBIN 13.2 g/dl (14.0-17.9); LYMPHOCYTES # (AUTO) 0.8 X10'3 (1.1-4.8); MEAN CORPUSCULAR HGB CONC 33.4 g/dL (33.0-36.5); MEAN PLATELET VOLUME 8.8 FL (7.4-10.4); MONOCYTES # (AUTO) 1.7 X10'3 (0-0.9); MONOCYTES % (AUTO) 13.8 % (2-12); NEUTROPHILS # (AUTO) 9.4 X10'3 (1.8-7.7); NEUTROPHILS % (AUTO) 78.4 % (42-75); PLATELET COUNT 140 X10'3 (140-440); RED BLOOD COUNT 4.27 X10'6 (4.70-6.10); RED CELL DISTRIBUTION WIDTH 14.5 % (11.5-14.5)
--- NOTE | 2019-02-25 09:47 | NUR ---
F/u: Pt daughter contacted [facility] pt enjoys cottage cheese w/ renal fruits r/t cantaloupe allergy coverage and would like TIDWM; dietary notified to send TIDWM and upgraded medium size from small prior. Addendum: 02/25/19 at [address] Amended: Links added.
[2019-02-25 09:54] LABS: ALBUMIN 1.7 G/DL (3.4-5.0); ANION GAP 3 (8-16); BLOOD UREA NITROGEN 34 MG/DL (7-18); BUN/CREATININE RATIO 29.6 (5.4-32.0); CALCIUM 8.5 MG/DL (8.5-10.1); CHLORIDE 105 MMOL/L (99-107); CREATININE 1.15 MG/DL (0.60-1.10); GLUCOSE 124 MG/DL (70-104); MAGNESIUM 1.8 MG/DL (1.5-2.4); POTASSIUM 3.7 MMOL/L (3.5-5.1); SODIUM 141 MMOL/L (135-145); TOTAL CARBON DIOXIDE 33.2 MMOL/L (24-32); eGFR 60 ML/MIN
[2019-02-25 10:23] LABS: PLATELET ESTIMATE NORMAL; TOTAL CELLS COUNTED 100
--- NOTE | 2019-02-25 12:16 | NUR ---
Sent to Dr Jeffers: PAGER ID: [phone] MESSAGE: RE: Nestor Michaud 3028B. Temp 100.1; BP 109/51; RR 25; WBC 12.0 -Mercedes [id number]
--- NOTE | 2019-02-25 14:56 | NUR ---
WOUND INFECTION EDUCATION PROVIDED BY WOUND CARE 1. Patient instructed to call their primary doctor, or go the ED immediately if any of the following symptoms occur: * Increased pain in wound * Increase in drainage from the wound * Redness in the skin surrounding the wound * Warmth in the skin surrounding the wound * Bleeding from the wound * Temperature of 101 or greater 2. If any of these occur while in the hospital tell a nurse immediately. Addendum: 02/25/19 at 1456 by Quentin Naranjo RN Amended: Links added.
--- NOTE | 2019-02-25 18:34 | NUR ---
Problems reprioritized. Patient report given, questions answered & plan of care reviewed with BUNNY Bullock.
--- NOTE | 2019-02-25 18:36 | NUR ---
Patient in room PCU 3028. I have received report from BUNNY Long and had the opportunity to ask questions and assume patient care.
[2019-02-25] MEDS: atorvastatin 20mg tablet PO SCH (20:31)
[2019-02-26] MEDS: albuterol 2.5 MG/3 ML nebule NEB SCH ×4 (02:41→19:43)
[2019-02-26 03:00] VITALS: BP 110/49
--- NOTE | 2019-02-26 04:13 | NUR ---
Patient has been building up more fluid in his hands. I elevated them on pillows and put a call in to Dr. Turner to ask if he would advise anything. Dr. Turner has been notified and does not want to to change or at any medical intervention for Mr. Michaud at this time for he does not know this patients history. I Will continue to monitor Mr. Michaud and inform dayshift nurse to consult with the daytime hospitalist.
--- NOTE | 2019-02-26 06:30 | NUR ---
Patient in room PCU 3028. I have received report from Ara HOLLIS and had the opportunity to ask questions and assume patient care.
--- NOTE | 2019-02-26 06:42 | NUR ---
Problems reprioritized. Patient report given, questions answered & plan of care reviewed with, zbigniew Garrett.
[2019-02-26 07:00] VITALS: BP 136/52
[2019-02-26] MEDS: dabigatran 150mg capsule PO SCH ×2 (07:42→21:06)
[2019-02-26] MEDS: vitamin D (cholecalciferol) 1,000 unit tablet PO SCH (07:44)
[2019-02-26] MEDS: multivitamins, therapeutics tablet PO SCH (07:44)
[2019-02-26] MEDS: amiodarone 200mg tablet PO SCH (07:44)
[2019-02-26] MEDS: lactobacillus rhamnosus 10,000 MMU CELLS/CAPSULE PO SCH ×2 (07:44→21:06)
[2019-02-26] MEDS: furosemide 40mg/4ml inj IV SCH ×2 (07:44→21:06)
[2019-02-26] MEDS: clindamycin-Cleocin 900mg/D5W 50 ML IV SCH ×2 (07:45→15:36)
[2019-02-26] MEDS: CefTRIAXone 2gm/D5W 50ml 50 ML IV SCH (07:45)
[2019-02-26] MEDS: K and/or MAG REPLACEMENT MC SCH (08:00)
[2019-02-26] MEDS: budesonide 0.5mg/2ml UD nebule IH SCH ×2 (09:13→19:43)
[2019-02-26 11:00] VITALS: BP 108/45
[2019-02-26 15:00] VITALS: BP 105/44
[2019-02-26] MEDS: HYDROcodone/acetaminophen 10/325mg tab PO PRN ×2 (15:35→18:41)
--- NOTE | 2019-02-26 15:59 | NUR ---
Reassessment: Severe sepsis with evidence of shock and lactic acidosis improved per MD notes. Pt continues on heart healthy diet receiving food preferences with documented 25-50% PO intake. Pt seen at bedside with family present reports an improving appetite. Pt provided with alternative heart healthy menu to provide additional food options and hopefully promote PO intake. Pt denies and food allergies or difficulty chewing/swallowing. Last documented BM 02/20 however pt reports LBM today (02/26). RD contact information provided. Will continue to follow. F/u: Pt daughter contacted RD pt enjoys cottage cheese w/ renal fruits r/t cantaloupe allergy coverage and would like TIDWM; dietary notified to send TIDWM and upgraded medium size from small prior. Initial: Pt admit w/ severe sepsis and lactic acidosis improving per MD note. DX PNA and strep sepsis likely r/t RLE cellulitis per MD note. Pt/family seen by RD written/verbal high protein ed w/ RD contact information provided. Pt reports decent appetite but daughter reports low appetite recently and some trouble swallowing but r/t amount of mucous from DX and no mechanical swallowing issues. Pt agrees to gravy w/ meats, cottage cheese w/ fruit at dinners, and chocolate ensure pudding w/ lunches; dietary notified. PO 25% avg meals this admit LBM 02/20 pt reports no feelings of constipation. 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 Will continue to monitor. Rec: 1. continue heart healthy diet 2. chocolate ensure pudding w/ lunches 3. honor pt food preferences; see above 4. wt per rx Addendum: 02/26/19 at [address] Amended: Links added.
--- NOTE | 2019-02-26 18:28 | NUR ---
Problems reprioritized. Patient report given, questions answered & plan of care reviewed with Christian HOLLIS.
--- NOTE | 2019-02-26 18:47 | NUR ---
[place] documentation: I have reviewed and agree with all interventions, assessments performed and documented by Lance HOLLIS. [place] Medication Administration: For this medication-pass time frame, all medication were reviewed, dispensed, administered and documented per hospital policy by Lance HOLLIS.
[2019-02-26 19:00] VITALS: BP 117/52
[2019-02-26] MEDS: atorvastatin 20mg tablet PO SCH (21:06)
[2019-02-26 23:00] VITALS: BP 112/52
[2019-02-27] MEDS: clindamycin-Cleocin 900mg/D5W 50 ML IV SCH ×2 (00:29→08:05)
[2019-02-27] MEDS: albuterol 2.5 MG/3 ML nebule NEB SCH ×2 (02:27→09:20)
[2019-02-27 03:00] VITALS: BP 115/77
[2019-02-27 06:16] LABS: BASOPHILS % (AUTO) 0.2 % (0-1); EOSINOPHILS # (AUTO) 0.2 X10'3 (0-0.9); EOSINOPHILS % (AUTO) 1.4 % (0-6); HEMATOCRIT 37.8 % (42.0-52.0); HEMOGLOBIN 12.5 g/dl (14.0-17.9); LYMPHOCYTES # (AUTO) 0.9 X10'3 (1.1-4.8); LYMPHOCYTES % (AUTO) 6.8 % (21-51); MEAN CORPUSCULAR HEMOGLOBIN 31.1 PG (27.0-31.0); MEAN CORPUSCULAR HGB CONC 33.2 g/dL (33.0-36.5); MEAN CORPUSCULAR VOLUME 93.8 FL (78-98); MEAN PLATELET VOLUME 8.6 FL (7.4-10.4); MONOCYTES # (AUTO) 1.6 X10'3 (0-0.9); MONOCYTES % (AUTO) 11.6 % (2-12); NEUTROPHILS # (AUTO) 10.8 X10'3 (1.8-7.7); PLATELET COUNT 193 X10'3 (140-440); RED BLOOD COUNT 4.03 X10'6 (4.70-6.10); RED CELL DISTRIBUTION WIDTH 14.2 % (11.5-14.5); WHITE BLOOD COUNT 13.4 X10'3 (4.5-11.0)
[2019-02-27 06:36] LABS: ALBUMIN 1.5 G/DL (3.4-5.0); ANION GAP 6 (8-16); BLOOD UREA NITROGEN 34 MG/DL (7-18); BUN/CREATININE RATIO 29.6 (5.4-32.0); CALCIUM 8.3 MG/DL (8.5-10.1); CHLORIDE 103 MMOL/L (99-107); CREATININE 1.15 MG/DL (0.60-1.10); GLUCOSE 97 MG/DL (70-104); MAGNESIUM 1.8 MG/DL (1.5-2.4); POTASSIUM 3.5 MMOL/L (3.5-5.1); SODIUM 141 MMOL/L (135-145); TOTAL CARBON DIOXIDE 32.3 MMOL/L (24-32); eGFR 60 ML/MIN
[2019-02-27 07:00] VITALS: BP 129/53
[2019-02-27] MEDS: K and/or MAG REPLACEMENT MC SCH (08:00)
[2019-02-27] MEDS: furosemide 40mg/4ml inj IV SCH (08:04)
[2019-02-27] MEDS: amiodarone 200mg tablet PO SCH (08:05)
[2019-02-27] MEDS: vitamin D (cholecalciferol) 1,000 unit tablet PO SCH (08:05)
[2019-02-27] MEDS: lactobacillus rhamnosus 10,000 MMU CELLS/CAPSULE PO SCH (08:05)
[2019-02-27] MEDS: multivitamins, therapeutics tablet PO SCH (08:05)
[2019-02-27] MEDS: dabigatran 150mg capsule PO SCH (08:05)
[2019-02-27] MEDS: methylnaltrexone br 12mg/0.6ml inj***SubQ only SQ SCH (08:05)
[2019-02-27] MEDS: CefTRIAXone 2gm/D5W 50ml 50 ML IV SCH (08:05)
[2019-02-27] MEDS: budesonide 0.5mg/2ml UD nebule IH SCH (09:20)
[2019-02-27 11:00] VITALS: BP 129/48
--- NOTE | 2019-02-27 13:28 | NUR ---
report given to tom at [facility] all questions answered
[2019-02-27] MEDS: HYDROcodone/acetaminophen 5mg/325mg tablet PO PRN (13:57)
--- NOTE | 2019-02-27 14:35 | NUR ---
patient left with transport all documents handed over patient in stable condition
== END 2019-02-27 14:30 | DRG 871 ==
LOC: ER 10:46 → PCU 3S 14:42 → EDBEDREQ 15:10 → CICU 2S 02-20 15:32 → PCU 3S 02-23 17:20
PROVIDERS: ADMIT Family Medicine; ATTEND Hospitalist
PROC: 5A09357 Assistance with Respiratory Ventilation, Less than 24 Consecutive Hours, Continuous Positive Airway Pressure (ICD-10-PCS; principal; 2019-02-20)
PROC: 02HV33Z Insertion of Infusion Device into Superior Vena Cava, Percutaneous Approach (ICD-10-PCS; 2019-02-20)
DX: A40.1 Sepsis due to streptococcus, group B (principal); R65.21 Severe sepsis with septic shock; I21.A1 Myocardial infarction type 2; J18.1 Lobar pneumonia, unspecified organism; J96.00 Acute respiratory failure, unspecified whether with hypoxia or hypercapnia; E87.2 Acidosis; G93.40 Encephalopathy, unspecified; J44.0 Chronic obstructive pulmonary disease with (acute) lower respiratory infection; L03.115 Cellulitis of right lower limb; N17.9 Acute kidney failure, unspecified; E03.9 Hypothyroidism, unspecified; E78.00 Pure hypercholesterolemia, unspecified; E78.5 Hyperlipidemia, unspecified; I10 Essential (primary) hypertension; I25.10 Atherosclerotic heart disease of native coronary artery without angina pectoris; I48.91 Unspecified atrial fibrillation; N40.0 Benign prostatic hyperplasia without lower urinary tract symptoms; Z66 Do not resuscitate; F32.9 Major depressive disorder, single episode, unspecified; I49.5 Sick sinus syndrome; E66.01 Morbid (severe) obesity due to excess calories; Z95.0 Presence of cardiac pacemaker; Z85.820 Personal history of malignant melanoma of skin; Z88.8 Allergy status to other drugs, medicaments and biological substances; Z79.899 Other long term (current) drug therapy; Z79.890 Hormone replacement therapy; I25.2 Old myocardial infarction; Z79.02 Long term (current) use of antithrombotics/antiplatelets; Z80.9 Family history of malignant neoplasm, unspecified; Z82.3 Family history of stroke; Z86.73 Personal history of transient ischemic attack (TIA), and cerebral infarction without residual deficits; Z87.891 Personal history of nicotine dependence; Z68.37 Body mass index [BMI] 37.0-37.9, adult
CPT/HCPCS: 36415; 36600; 71045; 80048; 80053; 80061; 80202; 81001; 82248; 82803; 82948; 83036; 83605; 83735; 83880; 84100; 84132; 84145; 84439; 84443; 84484; 85018; 85025; 85379; 85610; 85730; 87040; 87077; 87081; 87088; 87186; 93005; 93306; 93970; 94640; 94660; 94760; 96361; 96365; 97110; 97161; 97162; 97530; 97535; 99285; G0378; J0456; J0696; J1644; J1815; J1940; J1956; J2212; J2270; J2405; J2540; J2543; J3370; J3475; J3490; J7030; J7626